=== PATIENT | female | born 1960 | race Caucasian/White ===

== ENCOUNTER 2017-04-27 13:35 | Emergency (ER) | payer OTHER ==
[~2017-04-27] VITALS: Ht 157.5 cm; Wt 56.2 kg
--- NOTE | 2017-04-27 14:05 | NUR ---
[facility] at bedside talking with pt.
--- NOTE | 2017-04-27 14:50 | NUR ---
Pt is anxious and upset because she has not been seen. Dr. Johnson notified.
--- NOTE | 2017-04-27 15:00 | NUR ---
Pt stated she can no longer wait to see the doctor and ambulated out of ER with steady gait.
== END 2017-04-27 15:05 | disposition left against medical advice (07) ==
LOC: ER 13:35
DX: Z53.21 Procedure and treatment not carried out due to patient leaving prior to being seen by health care provider (principal)
CPT/HCPCS: A4663